=== PATIENT | female | born 1950 | race Caucasian/White ===

== ENCOUNTER 2018-01-07 06:56 | Inpatient (IN) | payer MEDICARE, OTHER ==
[~2018-01-07 06:56] MED LIST: ROPIVACAINE HCL/PF 100 MG, EPINEPHrine 0.2 MG, KETOROLAC TROMETHAMINE 30 MG in NORMAL S... IJ PRN; TRANEXAMIC ACID 1,000 MG in NORMAL SALINE 100 ML IV PRN; ceFAZolin SODIUM 1 GM VIAL IV PRN
[2018-01-07] MEDS: RINGER'S SOLUTION,LACTATED 1,000 ML IV PRN ×3 (07:47→10:30)
--- NOTE | 2018-01-07 08:00 | ANES ---
Anesthesia Pre Procedure Eval Vitals/Labs: Last Vital Signs Temp 36.4 C 01/07/18 07:00 Pulse 61 01/07/18 07:00 Resp 16 01/07/18 07:00 BP 129/65 01/07/18 07:00 Pulse Ox 95 01/07/18 07:00 HOME MEDICATIONS Cranberry Conc/C/Bacill Coag [Cranberry Tablet] 1 ea PO DAILY 11/30/12 [Last Taken 01/07/18] Ascorbic Acid [Vitamin C] 500 mg PO DAILY 04/26/13 [Last Taken 01/07/18] Aspirin/Calcium Carbonate/Mag [Aspirin Buffered 325 mg Tab] 325 mg PO DAILY 04/26/13 [Last Taken 12/29/17] Potassium Chloride [K-Dur] 20 meq PO DAILY 04/26/13 [Last Taken Unknown] Cholecalciferol (Vitamin D3) [Vitamin D3] 1,000 unit PO DAILY 04/28/13 [Last Taken 01/07/18] Losartan Potassium 50 mg PO DAILY #0 tab 05/01/13 [Last Taken 01/07/18] folic acid 400 mcg tablet 0.8 mg PO DAILY tab 11/24/17 [Last Taken 01/07/18] hydrochlorothiazide 12.5 mg tablet 12.5 mg PO DAILY 12/02/17 [Last Taken 01/07/18] meloxicam 15 mg tablet 15 mg PO DAILY 12/02/17 [Last Taken 12/29/17] methimazole 5 mg tablet 7.5 mg PO DAILY tab 12/02/17 [Last Taken 01/07/18] metoprolol tartrate 25 mg tablet 25 mg PO DAILY tab 12/02/17 [Last Taken 01/07/18] spironolactone 25 mg tablet 12.5 mg PO DAILY tab 12/02/17 [Last Taken 01/07/18] amoxicillin 500 mg tablet 2,000 mg PO .COMPLEX #4 tab 12/15/17 [Last Taken Unknown] Allergies/Adverse Reactions: Allergies Allergy/AdvReac Type Severity Reaction Status Date / Time lisinopril [From Zestril] AdvReac Mild COUGH Verified 01/07/18 07:13 - Planned Procedure Planned Procedure: Arthroplasty Total Knee Right 01/07, Left 01/09 Medication List Reviewed:: Yes Allergies Verified: Yes Medical History (Last Reviewed 01/07/18 @ 07:53 by Irineo Lynne CRNA) Anxiety Onset Date: Unknown Bilateral knee pain Onset Date: ~2013 Cardiac murmur Onset Date: 05/03/11 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 consider plavix. this may be what caused sz like activity, but she reports no "post-ictal" phase. will defer to neurology for this. Vitamin D deficiency Onset Date: 05/20/13 stone extraction Onset Date: Unknown Surgical History (Last Reviewed 01/07/18 @ 07:54 by Iirneo Lynne CRNA) H/O arthroscopy of right knee Onset Date: ~2007 Dr. Avila H/O oophorectomy Onset Date: Unknown Family History (Last Reviewed 01/07/18 @ 07:54 by Irineo Lynne CRNA) Mother Lung neoplasm Father Colon neoplasm - Family Anesthesia History Family History:: no untoward family reactions to anesthesia, no familial bleeding tendencies, no family history of clotting disorders, no family history of premature - Airway/Neck/Teeth Within Normal Limits:: Yes Teeth Condition: Intact, Irregular Notching Neck Exam: non-tender, full range of motion Mallampatti Score: 2 Thyromental (T-M) distance: > 6 cm Mandibulo Hyoid distance: > 3 cm - Respiratory Respiratory: chest non-tender - Cardiovascular Patient History - Cardiac/Respiratory: Hypertension, Valvular Heart Disease - moderate aortic stenosis, mild to moderate mitral stenosis Tolerates Activity: Fair Heart Sounds: S1 & S2, Regular - Anesthesia Assessment and Plan ASA Class: PS, III - hx global amnesia, aortic stenosis moderate Anesthesia Type Plan: General LMA, Block - for post op pain relief
--- NOTE | 2018-01-07 10:11 | OR ---
Operative Report - Dictated Report Narrative: Date: 01/07/2018 Preoperative diagnosis: Right Knee degenerative joint disease. Postoperative diagnosis: Right Knee degenerative joint disease. Procedure: Right Total knee arthroplasty. Surgeon: Philip Wood M.D. Craps Manager: Austin Avila PA-C (provided a set of educated skilled hands and assisted with transfer, positioning, prepping, draping, manipulation, retraction, placement of jigs, irrigation, closure of wounds, and dressings all of which could not be performed by the available surgical crew) Anesthesia: General with regional block and local periarticular joint injection. Complications: None Specimens: Bone for disposal. Estimated blood loss: Minimal. Tourniquet time: 85 Minutes at 350 millimeters of mercury. Retained implants: Depuy Attune size 6 narrow right lugged cemented posterior stabilized femoral component. Size 5 fixed-bearing cemented tibial platform. 6 by 5 millimeter posterior stabilized cross-linked tibial insert. 35 millimeter medialized patella button. Indications: Mrs. Esposito is a 67-year-old female who has a long-standing bilateral knee pain and arthrosis. She is here today for her right total knee. This patient was followed in my clinic for period of time with significant complaints of right knee pain consistent with arthritic changes. She had failed conservative measures including, but not limited to, activity modification, passage of time, medications, and other conservative measures. Patient wished to proceed with surgical treatment. The risks, benefits, and alternatives were discussed in clinic. The risks of , blood clots, bleeding, infection, nerve/tendon blood vessel/ injury, malposition of components, intraoperative fracture, postoperative limited range of motion, persistent pain, failure of components, and need for additional procedures. Patient wished to proceed consent was obtained after answering all questions. Procedure: After marking the correct extremity on the floor, the patient was taken to the operating room. A timeout was performed. IV antibiotics consisting of Ancef were administered prior to the procedure. A regional followed by general anesthetic was induced by anesthesia, per my request, on the operative table with all bony prominences well-padded. Pinedo catheter was placed, and a bump was placed under the operative side buttock. SCDs and SANJU hose were utilized on the nonoperative leg. A well-padded tourniquet was applied to the operative thigh. The operative leg was then pre-scrubbed with alcohol, prepped, and draped in a standard sterile fashion. After exsanguinating the extremity with an Esmarch bandage, the tourniquet was inflated. After marking out the anterior knee for standard incision centered over the patella, the skin was incised and dissected down to the joint retinaculum. The joint retinaculum was marked out as well as the horizontal axis of the patella, and a standard medial parapatellar arthrotomy was then made. The most proximal aspect of the quadriceps tendon and the patella tendon insertion were protected from release. A partial synovectomy was performed as well as a resection of the infrapatellar fat pad. The distal femoral fat pad proximal to the trochlea was also resected using cautery. The soft tissues were elevated off the medial aspect of the proximal tibia using a [place] elevator ensuring that we did not transect the medial collateral ligament. Upon initial evaluation range of motion was approximately 0 degrees to 120 degrees of flexion. There were signs of advanced arthrosis in the medial, lateral, and patellofemoral joint spaces. There were large marginal osteophytes which were removed with a rongeur. The knee was hyperflexed and the patella was tucked laterally. Protecting the surrounding soft tissues with Homans, an entry drill was placed down the femoral canal using Whitesides line for guidance into the entry point. The intramedullary femoral alignment petar was utilized in order to cut the distal femur in 5 degrees of valgus resecting 10 millimeters of bone. Next the distal femur was sized to a size 6. A posterior referencing guide was utilized to place the distal femoral cutting block in 3 degrees of external rotation. This was pinned into place. The rotation was confirmed both visually and based on anatomic landmarks. The 4 in 1 cutting jig of the appropriate size was utilized in order to make all bony cuts. The angle wing was used to ensure no notching. Retractors were utilized in order to protect surrounding soft tissues. This cut did not result in any excessive notching. We then cut the box centered over the distal femur. This allowed for resection of the anterior and posterior cruciate ligaments. I then turned my attention to the preparation of the tibia. Using an extra medullary tibial alignment petar, 4 millimeters of bone was resected off the medial articular surface. This was made perpendicular to the mechanical axis of the joint with the alignment petar centered over the ankle mortise. The alignment petar was checked and was noted to be parallel to the mechanical axis, centered over the medial one third of the tibial tubercle, paralleling the anterior surface of the tibia. We then turned our attention to the remaining meniscus and soft tissues. These were removed while protecting the surrounding ligaments and soft tissues. The marginal osteophytes off the anterior, posterior, medial, lateral aspects of the femur and tibia were remov ed. The tibia was sized out to a size 5. Next the tibia was drilled and punched in an externally rotated position. Next the trial femur and a series of tibial inserts were utilized in order to allow for full extension and maximal flexion. It was found that a 5 millimeter insert gave the best range of motion and stability at multiple flexion points as well as at full extension there was less than 2 mm of gapping both medially and laterally. There is minimal anterior translation with the knee at 90 degrees of flexion and no signs of being able to dislocate the knee. The patella was then prepared. The initial thickness was 20 millimeters. This was reamed down to 11 millimeters parallel to the anterior surface of the patella. It was sized out to a size 35 medialized patella button. This was then drilled and trialed. Without any medial restraint the patella tracked appropriately and did not sublux or dislocate. At this point, it was felt these were the appropriate sized implants, and all trials were removed. The standard periarticular joint injection consisting of ropivacaine, Toradol, and epinephrine were injected into the periarticular joint tissues. The bony surfaces were thoroughly irrigated with a pulsatile-suction saline irrigation device. A bone plug from the prior resected anterior chamfer cut was placed into the drill hole at the distal femur. The bony surfaces were then dried in preparation for placement of the implants. The cement was vacuum mixed per the slate roofer's instructions. The cement was placed on the dry bony surfaces and posterior aspect of the implants. The implants were impacted into place, removing all extruded cement. At this point anesthesia administered tranexamic acid per protocol intravenously. The knee was placed in extension with axial loading with the trial insert while the cement cured. Once the cement cured, all remaining extruded cement was removed. The knee was placed through a range of motion with the trial insert to ensure appropriate range of motion and stability. Final range of motion was approximately 0 to 120 degrees. The knee was again thoroughly irrigated with pulsatile saline lavage. The final polyethylene insert was then impacted into place ensuring no retained soft tissues. The remaining periarticular joint injection was injected. A medium Hemovac drain was placed exiting superior laterally. The knee was then placed over a triangle and the arthrotomy was closed with interrupted #1 Vicryl after thoroughly irrigating the joint. The deep and subcutaneous tissues were closed with interrupted 0 and 3-0 Vicryl respectively. Skin was closed with a running subcutaneous 3-0 Monocryl and Prineo Dermabond dressing. 4 x 4's, Sof-Rol, and a full leg Carlyle wrap were applied. All sponge, needle, blade, and instrument counts were correct prior to closing the wounds. Postoperative condition: The patient was awoken and transferred to the postanesthesia care unit in stable condition. Plan is to be admitted to the inpatient medical/surgical floor postoperatively for 24 hours of IV antibiotics, physical therapy, occupational therapy, and medical comanagement. Patient will be weightbearing as tolerated with range of motion as tolerated. DVT prophylaxis will be with SCDs, SANJU hose, and pharmacological anticoagulation. Anticipated hospital stay is approximately 1-3 days.
[2018-01-07] MEDS ORDERED: diphenhydrAMINE HCL 50 MG/ML VIAL IV PRN (10:12)
[2018-01-07] MEDS ORDERED: DEXTROSE 5%-LACTATED RINGERS 1,000 ML IV PRN (10:12)
[2018-01-07] MEDS ORDERED: ZOLPIDEM TARTRATE 5 MG TABLET PO PRN (10:12)
[2018-01-07] MEDS ORDERED: MAG HYDROX/ALUMINUM HYD/SIMETH 30 ML UDC PO PRN (10:12)
[2018-01-07] MEDS ORDERED: MAGNESIUM HYDROXIDE 30 ML UDC PO PRN (10:12)
[2018-01-07] MEDS ORDERED: ACETAMINOPHEN 500 MG TABLET PO PRN (10:12)
[2018-01-07] MEDS ORDERED: MORPHINE SULFATE 2 MG/ML DISP.SYRIN IV PRN (10:12)
[2018-01-07] MEDS ORDERED: ONDANSETRON HCL/PF 2 MG/ML VIAL IV PRN (10:12)
--- NOTE | 2018-01-07 10:34 | ANES ---
Anesthesia Procedure Note Procedure Note: ANESTHESIA PROCEDURE NOTE Date of Procedure: 01/07/2018 Time of procedure: 8:20 AM. Performed by: Irineo Lynne CRNA, MSN Dairy Cattle Farm Manager: Brenda Bansal RN. Preprocedure diagnosis: Post left total knee arthroplasty. Post procedure diagnosis: Same. Procedure: Left Adductor Canal Block. Indications: Post left total knee arthroplasty pain relief. Findings: See below. Details of the procedure: The patient was brought to OR for and placed in supine position. The patient's left femoral area to the knee was prepped with chlorhexidine and using ultrasound guidance the left femoral artery and nerve was identified and then followed to the level of the adductor canal. Lidocaine 1% was infiltrated to the skin of the intended injection site. Under ultrasound guidance the saphenous nerve was approached with visualization of a 4 inch shielded block needle. Once saphenous nerve was identified with proximity to the needle tip, the saphenous nerve was surrounded with 20 mL bupivacaine 0.25% with 1-200,000 epinephrine. Please see radiology/ultrasound report for details and retained images of the procedure. EBL: 0 Fluids: N/A. Specimen: N/A. Post procedure condition: The patient tolerated the procedure well. No complications were noted. Thank you for this consultation. Irineo Lynne CRNA, MSN
--- NOTE | 2018-01-07 10:35 | ANES ---
Post Anesthesia Discharge - Transfer of Care Transfer of Care handoff given to nurse: Yes - Discharge from PACU Discharge from PACU when meets criteria: Yes - Awake and comfortable - Anesthesia Post Op Note Anesthesia Post Op Note: initially SAO2 below 90.
--- NOTE | 2018-01-07 10:56 | ANES ---
Post Anesthesia Assessment - Vital Signs Vitals: Last Vital Signs Temp 37.0 C 01/07/18 10:50 Pulse 79 01/07/18 10:50 Resp 20 01/07/18 10:50 BP 119/60 01/07/18 10:50 Pulse Ox 95 01/07/18 10:50 Airway Patency: Normal - Mental Status Level Of Consciousness: Awake, Alert, Appropriate - Pain Level Pain Score: 0 - N/V Assessment Nausea/Vomiting Presence: None Dehydration:: No
[2018-01-07] MEDS: KETOROLAC TROMETHAMINE 15 MG/ML VIAL IV SCH ×3 (11:22→23:47)
[2018-01-07] MEDS: ceFAZolin SODIUM 1 GM in DEXTROSE 5 % IN WATER 100 ML IV SCH ×4 (14:44→20:43)
[2018-01-07] MEDS: SENNOSIDES/DOCUSATE SODIUM 1 TAB TABLET PO SCH (20:12)
[2018-01-07] MEDS: MORPHINE SULFATE 15 MG TABLET.SA PO SCH (20:12)
[2018-01-07] MEDS: METOPROLOL TARTRATE 25 MG TABLET PO SCH (20:31)
[2018-01-08] MEDS: ceFAZolin SODIUM 1 GM in DEXTROSE 5 % IN WATER 100 ML IV SCH ×2 (02:33)
[2018-01-08] MEDS: KETOROLAC TROMETHAMINE 15 MG/ML VIAL IV SCH ×4 (05:41→23:58)
[2018-01-08 05:44] LABS: Anion Gap 11.7 mmol/L (6.8-13.8); BUN/Creatinine Ratio 20.2 (9.0-21.6); Calcium * 8.8 mg/dL (7.9-10.9); Carbon Dioxide 27.9 mmol/L (24-32.6); Estimated Creat Clear 42.5; Potassium 4.6 mmol/L (3.4-4.6)
[2018-01-08 05:45] LABS: Hematocrit 36.7 % (37.0-47.0); Hemoglobin 12.4 gm/dL (12.5-16.0); Mean Cell Volume 89.5 fl (78-100); Mean Corpuscular Hemoglobin 30.2 pg (27-31); Mean Corpuscular Hgb Conc 33.8 g/dl (32-36); Mean Platelet Volume 11.2 fl (8-12.5); Platelet Count 172 K/mm3 (150-450); Red Cell Distribution Width 12.2 % (11.5-14.0); White Blood Count 18.6 K/mm3 (4.0-10.5)
[2018-01-08] MEDS: METHIMAZOLE 10 MG TABLET PO SCH (08:40)
[2018-01-08] MEDS: SPIRONOLACTONE 25 MG TABLET PO SCH (08:41)
[2018-01-08] MEDS: LOSARTAN POTASSIUM 50 MG TABLET PO SCH (08:41)
[2018-01-08] MEDS: FOLIC ACID 0.4 MG TABLET PO SCH (08:41)
[2018-01-08] MEDS: POTASSIUM CHLORIDE 20 MEQ TABLET.SA PO SCH (08:43)
[2018-01-08] MEDS: METOPROLOL TARTRATE 25 MG TABLET PO SCH ×2 (08:43→21:02)
[2018-01-08] MEDS: HYDROCHLOROTHIAZIDE 12.5 MG CAPSULE PO SCH (08:44)
[2018-01-08] MEDS: CHOLECALCIFEROL 1,000 UNIT CAPSULE PO SCH (08:44)
[2018-01-08] MEDS: ASCORBIC ACID 500 MG TABLET PO SCH (08:44)
[2018-01-08] MEDS: ENOXAPARIN SODIUM 40 MG/0.4 ML SYRG SC SCH (08:45)
[2018-01-08] MEDS ORDERED: METOPROLOL TARTRATE 25 MG TABLET PO SCH (09:00)
[2018-01-08] MEDS: MORPHINE SULFATE 15 MG TABLET.SA PO SCH ×2 (09:56→21:04)
--- NOTE | 2018-01-08 13:21 | PN ---
Subjective - Date and Time Seen Date: 01/08/18 Time: 13:18 Subjective Narrative: Doing well. No concerns. No pain. Sitting in chair. Slept ok. Tolerating breakfast Objective - Review of Systems Generalized/Overall Review: Reports: No Symptoms Reported - Vitals Vitals: Last Vital Signs Temp 36.4 C 01/08/18 10:18 Pulse 70 01/08/18 10:18 Resp 16 01/08/18 10:18 BP 119/55 01/08/18 10:18 Pulse Ox 95 01/08/18 10:18 - Abnormal Lab Findings Abnormal Lab Findings: Abnormal Lab Results 01/08/18 01/08/18 Range/Units 05:00 05:00 WBC 18.6 H (4.0-10.5) K/mm3 RBC 4.10 L (4.2-5.4) M/mm3 Hgb 12.4 L (12.5-16.0) gm/dL Hct 36.7 L (37.0-47.0) % Est GFR (Non-Af Amer) 54 L D (60-130) mL/min Random Glucose 156 H (70-110) mg/dL - Exam Exam Narrative: RLE - palp DP, sensation intact to light touch, dressings dry, drain in place, mccord in place, thigh and calf soft, moving ankle and toes Constitutional: Present: Alert, Oriented x3 Cauti Physician Documentation - Urinary Catheter Management Urethral (Mccord) Urethral Indwelling: Yes Reason for Continuing Indwelling Catheter: Surgical Procedure Date of Insertion: 01/07/18 Time of Insertion: 08:40 Assessment/Plan - Problems/Diagnosis (1) Acute blood loss anemia Problem: Acute (2) Status post total right knee replacement Problem: Acute Narrative: Doing well. Continue current care. Plan to have left TKA tomorrow. NPO after MN. Continue catheter for procedure. DC drain. 24 hr antibiotics, lovenox, ice, PT/OT, dressing change today. (3) Seizure disorder Problem: Chronic (4) Hypertension Problem: Chronic (5) Hyperlipidemia Problem: Chronic (6) Anxiety Problem: Chronic
[2018-01-08] MEDS: SENNOSIDES/DOCUSATE SODIUM 1 TAB TABLET PO SCH (21:02)
[2018-01-08] MEDS ORDERED: DEXTROSE 5%-LACTATED RINGERS 1,000 ML IV PRN (23:55)
[2018-01-09] MEDS: KETOROLAC TROMETHAMINE 15 MG/ML VIAL IV SCH ×4 (05:21→23:39)
[2018-01-09] MEDS: METOPROLOL TARTRATE 25 MG TABLET PO SCH ×2 (08:20→20:16)
[2018-01-09] MEDS: HYDROCHLOROTHIAZIDE 12.5 MG CAPSULE PO SCH (08:20)
[2018-01-09] MEDS: SPIRONOLACTONE 25 MG TABLET PO SCH (08:20)
[2018-01-09] MEDS ORDERED: ROPIVACAINE HCL/PF 100 MG, EPINEPHrine 0.2 MG, KETOROLAC TROMETHAMINE 30 MG in NORMAL S... IJ PRN (09:00)
[2018-01-09] MEDS ORDERED: ceFAZolin SODIUM 1 GM VIAL IV PRN (09:00)
[2018-01-09] MEDS ORDERED: TRANEXAMIC ACID 1,000 MG in NORMAL SALINE 100 ML IV PRN (09:00)
[2018-01-09] MEDS: RINGER'S SOLUTION,LACTATED 1,000 ML IV PRN ×2 (10:10→11:29)
[2018-01-09] MEDS ORDERED: DEXTROSE 5%-LACTATED RINGERS 1,000 ML IV PRN (11:31)
--- NOTE | 2018-01-09 11:31 | OR ---
Operative Report - Dictated Report Narrative: Date: 01/09/2018 Preoperative diagnosis: Left Knee degenerative joint disease. Postoperative diagnosis: Left Knee degenerative joint disease. Procedure: Left Total knee arthroplasty. Surgeon: Philip Wood M.D. Culturist: Austin Avila PA-C (he provided us that a skilled educated handset assisted with transfer, positioning, prepping, draping, retraction, exposure, manipulation, placement of instruments, suturing, and placement of dressings all of which cannot be performed by the available surgical crew) Anesthesia: General with regional block and local periarticular joint injection. Complications: None Specimens: Bone for disposal. Estimated blood loss: Minimal. Tourniquet time: 80 Minutes at 350 millimeters of mercury. Retained implants: Depuy Attune size 6 narrow left lugged cemented posterior stabilized femoral component. Size 5 fixed-bearing cemented tibial platform. 6 by 8 millimeter posterior stabilized cross-linked tibial insert. 35 millimeter medialized patella button. Indications: Mrs. Esposito is a 67-year-old female who underwent right total knee arthroplasty 2 days prior and is here today for her staged bilateral total knee arthroplasty. She has long-standing left knee pain and arthrosis. This patient was followed in my clinic for period of time with significant complaints of left knee pain consistent with arthritic changes. She had failed conservative measures including, but not limited to, activity modification, passage of time, medications, and other conservative measures. Patient wished to proceed with surgical treatment. The risks, benefits, and alternatives were discussed in clinic. The risks of , blood clots, bleeding, infection, nerve/tendon blood vessel/ injury, malposition of components, intraoperative fracture, postoperative limited range of motion, persistent pain, failure of components, and need for additional procedures. Patient wished to proceed consent was obtained after answering all questions. Procedure: After marking the correct extremity on the floor, the patient was taken to the operating room. A timeout was performed. IV antibiotics consisting of Ancef were administered prior to the procedure. A general followed by spinal anesthetic was induced by anesthesia, per my request, on the operative table with all bony prominences well-padded. Pinedo catheter was already in place, and a bump was placed under the operative side buttock. SCDs and SANJU hose were utilized on the nonoperative leg. A well-padded tourniquet was applied to the operative thigh. The operative leg was then pre-scrubbed with alcohol, prepped, and draped in a standard sterile fashion. After exsanguinating the extremity with an Esmarch bandage, the tourniquet was inflated. After marking out the anterior knee for standard incision centered over the patella, the skin was incised and dissected down to the joint retinaculum. The joint retinaculum was marked out as well as the horizontal axis of the patella, and a standard medial parapatellar arthrotomy was then made. The most proximal aspect of the quadriceps tendon and the patella tendon insertion were protected from release. A partial synovectomy was performed as well as a resection of the infrapatellar fat pad. The distal femoral fat pad proximal to the trochlea was also resected using cautery. The soft tissues were elevated off the medial aspect of the proximal tibia using a [place] elevator ensuring that we did not transect the medial collateral ligament. Upon initial evaluation range of motion was approximately 0 degrees to 130 degrees of flexion. There were signs of advanced arthrosis in the medial, lateral, and patellofemoral joint spaces. There were large marginal osteophytes which were removed with a rongeur. The knee was hyperflexed and the patella was tucked laterally. Protecting the surrounding soft tissues with Homans, an entry drill was placed down the femoral canal using Whitesides line for guidance into the entry point. The intramedullary femoral alignment petar was utilized in order to cut the distal fem ur in 5 degrees of valgus resecting 10 millimeters of bone. Next the distal femur was sized to a size 6. A posterior referencing guide was utilized to place the distal femoral cutting block in 3 degrees of external rotation. This was pinned into place. The rotation was confirmed both visually and based on anatomic landmarks. The 4 in 1 cutting jig of the appropriate size was utilized in order to make all bony cuts. The angle wing was used to ensure no notching. Retractors were utilized in order to protect surrounding soft tissues. This cut did not result in any excessive notching. We then cut the box centered over the distal femur. This allowed for resection of the anterior and posterior cruciate ligaments. I then turned my attention to the preparation of the tibia. Using an extra medullary tibial alignment petar, 4 millimeters of bone was resected off the medial articular surface. This was made perpendicular to the mechanical axis of the joint with the alignment petar centered over the ankle mortise. The alignment petar was checked and was noted to be parallel to the mechanical axis, centered over the medial one third of the tibial tubercle, paralleling the anterior surface of the tibia. We then turned our attention to the remaining meniscus and soft tissues. These were removed while protecting the surrounding ligaments and soft tissues. The marginal osteophytes off the anterior, posterior, medial, lateral aspects of the femur and tibia were removed. The tibia was sized out to a size 5. Next the tibia was drilled and punched in an externally rotated position. Next the trial femur and a series of tibial inserts were utilized in order to allow for full extension and maximal flexion. It was found that a 8 millimeter insert gave the best range of motion and stability at multiple flexion points as well as at full extension there was less than 2 mm of gapping both medially and laterally. There is minimal anterior translation with the knee at 90 degrees of flexion and no signs of being able to dislocate the knee. The patella was then prepared. The initial thickness was 20 millimeters. This was reamed down to 11 millimeters parallel to the anterior surface of the patella. It was sized out to a size 35 medialized patella button. This was then drilled and trialed. Without any medial restraint the patella tracked appropriately and did not sublux or dislocate. At this point, it was felt these were the appropriate sized implants, and all trials were removed. The standard periarticular joint injection consisting of ropivacaine, Toradol, and epinephrine were injected into the periarticular joint tissues. The bony surfaces were thoroughly irrigated with a pulsatile-suction saline irrigation device. A bone plug from the prior resected anterior chamfer cut was placed into the drill hole at the distal femur. The bony surfaces were then dried in preparation for placement of the implants. The cement was vacuum mixed per the psychological examiner's instructions. The cement was placed on the dry bony surfaces and posterior aspect of the implants. The implants were impacted into place, removing all extruded cement. At this point anesthesia administered tranexamic acid per protocol intravenously. The knee was placed in extension with axial loading with the trial insert while the cement cured. Once the cement cured, all remaining extruded cement was removed. The knee was placed through a range of motion with the trial insert to ensure appropriate range of motion and stability. Final range of motion was approximately 0 to 130 degrees. The knee was again thoroughly irrigated with pulsatile saline lavage. The final polyethylene insert was then impacted into place ensuring no retained soft tissues. The remaining periarticular joint injection was injected. A medium Hemovac drain was placed exiting superior laterally. The knee was then placed over a triangle and the arthrotomy was closed with interrupted #1 Vicryl after thoroughly irrigating the joint. The deep and subcutaneous tissues were closed with interrupted 0 and 3-0 Vicryl respectively. Skin was closed with a running subcutaneous 3-0 Monocryl and Prineo Dermabond dressing. 4 x 4's, Sof-Rol, and a full leg Carlyle wrap were applied. All sponge, needle, blade, and instrument counts were correct prior to closing the wounds. Postoperative condition: The patient was awoken and transferred to the postanesthesia care unit in stable condition. Plan is to be admitted to the inpatient medical/surgical floor postoperatively for 24 hours of IV antibiotics, physical therapy, occupational therapy, and medical comanagement. Patient will be weightbearing as tolerated with range of motion as tolerated. DVT prophylaxis will be with SCDs, SANJU hose, and pharmacological anticoagulation. Anticipated hospital stay is approximately 1-3 days.
--- NOTE | 2018-01-09 11:55 | ANES ---
Anesthesia Procedure Note Procedure Note: ANESTHESIA PROCEDURE NOTE Date of Procedure: ANESTHESIA PROCEDURE NOTE Date of Procedure: 01/09/2018 Time of procedure: 9:45 AM Performed by: STANFORD Johnson CRNA, MSN Glue Bone Crusher:Margarita Hammond RN. Preprocedure diagnosis: Left total knee arthroplasty. Post procedure diagnosis: Same. Procedure: Left Adductor Canal Block. Indications: Post left total knee arthroplasty pain relief. Findings: See below. Details of the procedure: The patient was brought to OR #4 and placed in supine position. The patient's left femoral area to the knee was prepped with chlorhexidine and using ultrasound guidance the left femoral artery and nerve was identified and then followed to the level of the adductor canal. Lidocaine 1% was infiltrated to the skin of the intended injection site. Under ultrasound guidance the saphenous nerve was approached with visualization of a 2 inch shielded block needle. Once saphenous nerve was identified with proximity to the needle tip, the saphenous nerve was surrounded with 20 mL bupivacaine 0.25% with 1-200,000 epinephrine. Please see radiology/ultrasound report for details and retained images of the procedure. EBL: 0 Fluids: N/A. Specimen: N/A. Post procedure condition: The patient tolerated the procedure well. No complications were noted. Thank you for this consultation. Irineo Lynne CRNA, ARNP, MSN
--- NOTE | 2018-01-09 11:56 | ANES ---
Post Anesthesia Discharge - Transfer of Care Transfer of Care handoff given to nurse: Yes - Discharge from PACU Discharge from PACU when meets criteria: Yes - Awake and comfortable
--- NOTE | 2018-01-09 12:34 | ANES ---
Post Anesthesia Assessment - Vital Signs Vitals: Last Vital Signs Temp 38.1 C H 01/09/18 12:05 Pulse 85 01/09/18 12:05 Resp 23 H 01/09/18 12:05 BP 123/46 01/09/18 12:05 Pulse Ox 95 01/09/18 12:05 Airway Patency: Normal - Mental Status Level Of Consciousness: Awake, Alert, Appropriate - Pain Level Pain Score: 0 - N/V Assessment Nausea/Vomiting Presence: None Dehydration:: No
[2018-01-09] MEDS: ENOXAPARIN SODIUM 40 MG/0.4 ML SYRG SC SCH (14:20)
[2018-01-09] MEDS: MORPHINE SULFATE 15 MG TABLET.SA PO SCH ×2 (14:20→20:17)
[2018-01-09] MEDS: METHIMAZOLE 10 MG TABLET PO SCH (14:35)
[2018-01-09] MEDS: LOSARTAN POTASSIUM 50 MG TABLET PO SCH (14:35)
[2018-01-09] MEDS: FOLIC ACID 0.4 MG TABLET PO SCH (14:36)
[2018-01-09] MEDS: POTASSIUM CHLORIDE 20 MEQ TABLET.SA PO SCH (14:37)
[2018-01-09] MEDS: CHOLECALCIFEROL 1,000 UNIT CAPSULE PO SCH (14:37)
[2018-01-09] MEDS: ASCORBIC ACID 500 MG TABLET PO SCH (14:37)
[2018-01-09] MEDS: ceFAZolin SODIUM 1 GM in DEXTROSE 5 % IN WATER 100 ML IV SCH ×4 (14:39→19:14)
[2018-01-09] MEDS: SENNOSIDES/DOCUSATE SODIUM 1 TAB TABLET PO SCH (20:17)
[2018-01-09] MEDS: oxyCODONE HCL/ACETAMINOPHEN 1 TAB TABLET PO PRN (21:20)
[2018-01-10] MEDS: ceFAZolin SODIUM 1 GM in DEXTROSE 5 % IN WATER 100 ML IV SCH ×2 (00:50)
[2018-01-10] MEDS: KETOROLAC TROMETHAMINE 15 MG/ML VIAL IV SCH ×2 (04:50→11:53)
[2018-01-10 06:04] LABS: Hematocrit 25.6 % (37.0-47.0); Hemoglobin 8.5 gm/dL (12.5-16.0); Mean Cell Volume 90.8 fl (78-100); Mean Corpuscular Hemoglobin 30.1 pg (27-31); Mean Corpuscular Hgb Conc 33.2 g/dl (32-36); Mean Platelet Volume 10.6 fl (8-12.5); Platelet Count 141 K/mm3 (150-450); Red Blood Count 2.82 M/mm3 (4.2-5.4); Red Cell Distribution Width 12.4 % (11.5-14.0)
[2018-01-10 06:16] LABS: BUN/Creatinine Ratio 30.2 (9.0-21.6); Calcium * 7.9 mg/dL (7.9-10.9); Carbon Dioxide 31.6 mmol/L (24-32.6); Estimated Creat Clear 48.3; Potassium 4.6 mmol/L (3.4-4.6)
[2018-01-10] MEDS: METOPROLOL TARTRATE 25 MG TABLET PO SCH (08:23)
[2018-01-10] MEDS: HYDROCHLOROTHIAZIDE 12.5 MG CAPSULE PO SCH (08:23)
[2018-01-10] MEDS: SPIRONOLACTONE 25 MG TABLET PO SCH (08:23)
[2018-01-10] MEDS: MORPHINE SULFATE 15 MG TABLET.SA PO SCH (08:24)
[2018-01-10] MEDS: POTASSIUM CHLORIDE 20 MEQ TABLET.SA PO SCH (08:24)
[2018-01-10] MEDS: LOSARTAN POTASSIUM 50 MG TABLET PO SCH (08:35)
[2018-01-10] MEDS: FOLIC ACID 0.4 MG TABLET PO SCH (08:35)
[2018-01-10] MEDS: ASCORBIC ACID 500 MG TABLET PO SCH (11:12)
[2018-01-10] MEDS: METHIMAZOLE 10 MG TABLET PO SCH (11:12)
[2018-01-10] MEDS: CHOLECALCIFEROL 1,000 UNIT CAPSULE PO SCH (11:12)
[2018-01-10] MEDS: ENOXAPARIN SODIUM 40 MG/0.4 ML SYRG SC SCH (11:13)
[2018-01-10] MEDS: oxyCODONE HCL/ACETAMINOPHEN 1 TAB TABLET PO PRN (11:44)
--- NOTE | 2018-01-10 11:46 | DS ---
(1) Acute blood loss anemia Problem: Acute (2) Status post total right knee replacement Problem: Acute (3) Seizure disorder Problem: Chronic (4) Hypertension Problem: Chronic (5) Hyperlipidemia Problem: Chronic (6) Anxiety Problem: Chronic (7) Status post total left knee replacement Problem: Acute (8) Hypothyroid Problem: Chronic Description of Stay: Mrs. Esposito was admitted to the floor after undergoing bilateral total knee arthroplasties in a staged fashion. Tolerated this well. Was admitted to the floor after each procedure postoperatively for 24 hours of IV antibiotics, pain control, medical comanagement, and occupational and physical therapy. OT and PT were consulted to assist with activities of daily living and ambulation. Was made weightbearing as tolerated with range of motion as tolerated. Pain was in itially controlled with IV regimen. This was transitioned to oral once tolerating a by mouth intake. Was resumed on home diet and medications. Had a Pindeo catheter inserted and the operating room which was discontinued on postoperative day 1 after the second knee. A drain was placed intraoperatively into the knee which was discontinued on postoperative day 1. Lovenox SCD and SANJU hose were utilized for DVT prophylaxis. Vital signs remained stable to the hospital course. Serial labs were obtained which showed a final hemoglobin of 8.5 grams. BMP was reviewed and was stable. Physical examination throughout the hospital course showed an extremity that had sensation that was intact to light touch, palpable pulses, a benign wound, motor intact to the toes, ankle, and knee. Knee range of motion was approximately 5 degrees to 70 degrees. Once an oral pain regimen was tolerated and physical therapy goals were met, it was felt that they were stable for discharge to home. Instructions: Continue with weightbearing as tolerated and range of motion as tolerated. It is okay to shower and get the wound wet as long as there is no drainage from the wound. Do not bathe or soak the wound. If there is any drainage from the wound keep the wound clean and dry and cover with dry gauze and tape. Change every 2- 3 days as needed if there is any drainage. Cover wound while showering if there is any drainage. Continue with physical therapy. Resume home diet. Report any fever over 101.5 Fahrenheit, uncontrolled pain, increased drainage, foul odor of drainage, new or increased calf pain or shortness of breath, or any other significant complaints. A 325mg dialy aspirin will be started after finishing anticoagulation if not allergic. Continue with SANJU hose on the operative extremity until instructed otherwise. No driving until instructed otherwise. Follow up in approximately 2-3 weeks. Procedures Performed: see notes below List Procedures: Bilateral total knee arthroplasty Results and Findings: Lab Pending Results 01/08/18 05:00: WBC 18.6 H, RBC 4.10 L, Hgb 12.4 L, Hct 36.7 L, MCV 89.5, MCH 30.2, MCHC 33.8, RDW 12.2, Plt Count 172, MPV 11.2 01/08/18 05:00: Sodium 137, Plasma Sodium 138, Potassium 4.6, Chloride 102, Carbon Dioxide 27.9, Anion Gap 11.7, BUN 22, Creatinine 1.09, Est GFR (Non-Af Amer) 54 L D, BUN/Creatinine Ratio 20.2, Random Glucose 156 H, Calcium 8.8 01/10/18 06:00: WBC 13.0 H D, RBC 2.82 L, Hgb 8.5 L, Hct 25.6 L, MCV 90.8, MCH 30.1, MCHC 33.2, RDW 12.4, Plt Count 141 L, MPV 10.6 01/10/18 06:00: Sodium 140, Plasma Sodium 140, Potassium 4.6, Chloride 103, Carbon Dioxide 31.6, Anion Gap 10.0, BUN 29 H, Creatinine 0.96, Est GFR (Non-Af Amer) 62, BUN/Creatinine Ratio 30.2 H, Random Glucose 130 H, Calcium 7.9 Discharge Location: Home Disposition: Home self-care Condition: Good Discharge Activity: Activity as tolerated, Weight bearing Discharge Diet: General/regular food Referrals: Krishna Leung MD [Primary Care Provider] - Prescriptions (Any new or edited meds): Enoxaparin Sodium [Lovenox] 40 mg SC Q24H #7 disp.syrin Morphine Sulfate [Ms Contin] 15 mg PO Q12H #20 tablet.sa oxyCODONE HCL/ACETAMINOPHEN [Percocet 5 MG/325 MG] 2 tab PO Q4H PRN #60 tablet PRN Reason: Moderate Pain (Pain Scale 4-6) Sennosides/Docusate Sodium [Senokot-S] 2 tab PO HS #60 tablet Complete Home Medications List: Complete Home Medication List: Cranberry Conc/C/Bacill Coag [Cranberry Tablet] 1 ea PO DAILY 11/30/12 Ascorbic Acid [Vitamin C] 500 mg PO DAILY 04/26/13 Aspirin/Calcium Carbonate/Mag [Aspirin Buffered 325 mg Tab] 325 mg PO DAILY 04/26/13 Potassium Chloride [K-Dur] 20 meq PO DAILY 04/26/13 Cholecalciferol (Vitamin D3) [Vitamin D3] 1,000 unit PO DAILY 04/28/13 Losartan Potassium 50 mg PO DAILY #0 tab 05/01/13 folic acid 400 mcg tablet 0.8 mg PO DAILY tab 11/24/17 hydrochlorothiazide 12.5 mg tablet 12.5 mg PO DAILY 12/02/17 methimazole 5 mg tablet 7.5 mg PO DAILY tab 12/02/17 metoprolol tartrate 25 mg tablet 25 mg PO BID tab 12/02/17 spironolactone 25 mg tablet 12.5 mg PO DAILY tab 12/02/17 amoxicillin 500 mg tablet 2,000 mg PO .COMPLEX #4 tab 12/15/17 Enoxaparin Sodium [Lovenox] 40 mg SC Q24H #7 disp.syrin 01/10/18 Morphine Sulfate [Ms Contin] 15 mg PO Q12H #20 tablet.sa 01/10/18 Sennosides/Docusate Sodium [Senokot-S] 2 tab PO HS #60 tablet 01/10/18 oxyCODONE HCL/ACETAMINOPHEN [Percocet 5 MG/325 MG] 2 tab PO Q4H PRN #60 tablet 01/10/18 Amb Orders for Discharge: PT Evaluation and Treatment* Facility: [facility], Location: Rehabilitation Services
[2018-01-10 13:24] VITALS: BP 113/54
== END 2018-01-10 13:45 | disposition home or self-care (01) | DRG 462 ==
LOC: MS 06:56 → EDSTATUS 08:30
PROVIDERS: ADMIT Orthopaedic Surgery; ATTEND Orthopaedic Surgery
CPT/HCPCS: 36415; 73560; 80048; 85027; 97110; 97116; 97161; 97164; 97165; 97166; 97530; 97535